=== PATIENT | female | born 1965 | race Caucasian/White ===

== ENCOUNTER → 2017-10-19 | Outpatient (CLI) | payer OTHER ==
[~2017-10-19] MED LIST: IOPAMIDOL (ISOVUE 370) 100 ML BTL IV ONE
== END ==
LOC: FIMAGING 12:33
PROVIDERS: ATTEND Physician Assistant
DX: I77.9 Disorder of arteries and arterioles, unspecified (principal)
CPT/HCPCS: Q9967